=== PATIENT | female | born 1980 | race Caucasian/White ===

== ENCOUNTER → 2017-01-11 | Outpatient (CLI) | payer BC ==
[~2017-01-11] MED LIST: ALBU1AER9 INH; ASCO500C5 PO; CHOL100041 PO; CLR10 PO; CODCAP4 PO; CYAN10005 PO; FOLI1TAB7 PO; GLC/500 PO; MULT-506 PO; PRIMROSE OIL PO; SHAKEOLOGY PO; THYR15TA PO; THYR90TA PO
== END | disposition home or self-care (01) ==
LOC: C.LAB1850 09:33
PROVIDERS: ATTEND Internal Medicine Endocrinology, Diabetes & Metabolism
DX: E06.3 Autoimmune thyroiditis (principal)

== ENCOUNTER → 2017-06-19 | Outpatient (CLI) | payer BC ==
[~2017-06-19] MED LIST changes: +CODCAP PO; -CODCAP4 PO
== END | disposition home or self-care (01) ==
LOC: C.PAPS 15:36
PROVIDERS: ATTEND Obstetrics & Gynecology
DX: Z01.419 Encounter for gynecological examination (general) (routine) without abnormal findings (principal)

== ENCOUNTER → 2018-01-24 | Outpatient (CLI) | payer BC ==
[~2018-01-24] MED LIST changes: -CODCAP PO; +CODCAP4 PO; -FOLI1TAB7 PO; +FOLI1TAB8 PO
== END | disposition home or self-care (01) ==
LOC: C.LAB1850 11:40
PROVIDERS: ATTEND Internal Medicine Endocrinology, Diabetes & Metabolism
DX: E03.9 Hypothyroidism, unspecified (principal)

== ENCOUNTER → 2018-05-29 | Outpatient (CLI) | payer BC ==
--- NOTE | 2018-06-03 14:23 | POLYSOMNOGRAPH REPORT ---
CLINICAL DATA: A 37-year-old female with BMI of 42.[address] Chua and Dr. Clemens as well as Laurence Gutierrez and myself with symptoms suggestive of sleep apnea. On the evening of 05/30/2018, a home sleep apnea test was performed using a [employer] type 3 monitor. RECORDING RESULTS: Total recording time was 9.7 hours. The patient's monitoring time and estimated sleep time was 8 hours. RESPIRATORY DATA: Mild sleep apnea was documented. The AARON was 9.7. There were 10 apneic episodes, 8 obstructive, and 2 mixed. There were 67 hypopneic episodes. The longest respiratory event was 59 seconds. OXIMETRY DATA: Nocturnal hypoxemia was seen. Oxygen slime was 79%. Mean saturation was 93%. Time below 89% was 15 minutes. HEART RATE DATA: Heart rates ranged from 61-75 beats per minute. SNORING DATA: Snoring was recorded throughout the night. MARBLE RUBBER'S COMMENTS: Hypopneas and apneas were seen. They appeared to be timed intermittently through the night, most likely consistent with REM sleep.The patient spent the majority of the evening supine. IMPRESSION: Mild sleep apnea/hypopnea with an AARON of 9.7 with nocturnal hypoxemia. RECOMMENDATIONS: The patient may benefit from a repeat sleep study with CPAP or use of auto CPAP. TOSHIAD
== END | disposition home or self-care (01) ==
LOC: C.NEUR 10:14
PROVIDERS: ATTEND Physician Assistant Medical
DX: R53.83 Other fatigue (principal); E66.01 Morbid (severe) obesity due to excess calories; R06.83 Snoring